=== PATIENT | female | born 1975 | race Caucasian/White ===

== ENCOUNTER 2024-05-10 10:12 | Emergency (ER) | payer MEDICAID ==
[~2024-05-10] VITALS: Ht 151.1 cm; Wt 50.9 kg
[2024-05-10 10:21] VITALS: BP 106/74; PULSE 98; RESP 16; TEMP 98; O2SAT 100
[2024-05-10] MEDS ORDERED: ATA25 PO (11:02)
[2024-05-10] MEDS ORDERED: ONDA8TAB87 PO (11:02)
== END 2024-05-10 11:17 | disposition home or self-care (01) ==
LOC: MED 10:12
DX: F41.9 Anxiety disorder, unspecified (principal); R11.2 Nausea with vomiting, unspecified; I10 Essential (primary) hypertension
CPT/HCPCS: 99283